=== PATIENT | female | born 1985 | race Caucasian/White ===

== ENCOUNTER 2016-11-06 05:46 | Inpatient (IN) | payer BC ==
[2016-11-06] VITALS (9 sets, daily range): BP systolic 110–128; BP diastolic 65–79
[~2016-11-06] VITALS: Ht 160 cm; Wt 70.8 kg
[2016-11-06] MEDS ORDERED: IBUPROFEN800 MG PO (08:31)
[2016-11-07 06:20] LABS: EOSINOPHIL (%) 0.5 % (0-5); EOSINOPHIL COUNT 0.1 K/uL (0-0.3); HEMATOCRIT 32.1 % (36.0-46.0); IMMATURE GRANULOCYTE (%) 0.9 % (0.0-0.7); IMMATURE GRANULOCYTE COUNT 0.1 K/uL; INSTRUMENT ABS NEUTROPHIL CT 10.7 K/uL; LYMPHOCYTE COUNT 2.2 K/uL (1.0-2.8); MCH 34.3 PG (29.0-34.0); MCHC 34.6 G/DL (30.0-36.0); MCV 99.1 FL (83-99); MEAN PLAT.VOLUME 10.7 uM^3 (9.5-12.4); MONOCYTE (%) 7.2 % (3-12); NEUTROPHIL (%) 75.9 % (45-76); NEUTROPHIL COUNT 10.7 K/uL (1.8-6.4); PLATELET COUNT 186 K/uL (156-360); RBC DIS.WIDTH-SD 46.6 % (39-53); RED BLOOD COUNT 3.24 M/uL (3.80-5.20); WHITE BLOOD COUNT 14.1 K/uL (4.1-10.2)
[2016-11-07 07:58] VITALS: BP 119/65
[2016-11-07 16:52] VITALS: BP 110/69
[2016-11-07 23:00] VITALS: BP 127/79
[2016-11-08 08:06] VITALS: BP 125/76
== END 2016-11-08 11:00 | disposition home or self-care (01) | DRG 775 ==
LOC: LDRP-OP 05:46 → 2WEST 05:47 → LDRP-OP 12-05 11:44
PROVIDERS: Advanced Practice Midwife
DX: O99.824 Streptococcus B carrier state complicating childbirth (principal); O62.3 Precipitate labor; O70.1 Second degree perineal laceration during delivery; O75.89 Other specified complications of labor and delivery; L30.9 Dermatitis, unspecified; Z37.0 Single live birth; Z3A.40 40 weeks gestation of pregnancy; Z88.2 Allergy status to sulfonamides
CPT/HCPCS: 85025; J7120